=== PATIENT | female | born 1960 | race African-American/Black ===

== ENCOUNTER 2022-07-30 12:08 | Inpatient (IN) | payer MEDICARE, MEDICAID ==
[~2022-07-30] VITALS: Ht 165.1 cm; Wt 104.7 kg
[2022-07-30 14:01] LABS: Basophils # (auto) 0 10 ^3/uL (0-0.2); Eosinophils # (auto) 0 10 ^3/uL (0-0.8); Eosinophils % (auto) 0.2 % (0.0-7.0); Monocytes # (auto) 0.5 10 ^3/uL (0-1.3)
[2022-07-30 14:04] LABS: Basophils % (auto) 0.4 % (0.0-2.0); Hematocrit 37.3 % (36.0-46.0); Lymphocytes # (auto) 0.6 10 ^3/uL (0.4-5.4); Lymphocytes % (auto) 9.3 % (10.0-50.0); Mean Corpuscular Hemoglobin 32.8 pg (28.0-32.0); Mean Corpuscular Hgb Conc. 32.3 g/dL (32.0-36.0); Mean Corpuscular Volume 101.7 fL (80.0-100.0); Monocytes % (auto) 7.1 % (0.0-12.0); Neutrophils # (auto) 5.7 10 ^3/uL (1.6-8.6); Nucleated Red Blood Cells % 0.4 %; Red Blood Cells 3.67 10^6/uL (4.0-5.20); White Blood Cell 6.9 10^3/uL (4.4-10.8)
[2022-07-30 14:05] LABS: Red Cell Distribution Width 20.5 % (11.8-14.3)
[2022-07-30 14:26] LABS: Albumin 3.1 g/dL (3.4-5.0); Calcium 8.7 mg/dL (8.5-10.1); Potassium 4.9 mmol/L (3.5-5.1)
[2022-07-30 14:29] LABS: BUN/Creatinine Ratio 6.9; Bilirubin, Total 1.1 mg/dL (0.2-1.0); Total Protein 7.9 g/dL (6.4-8.2)
[2022-07-30 17:47] LABS: Magnesium 2.6 mg/dL (1.6-2.6); Phosphorus 7.2 mg/dL (2.5-4.90)
[2022-07-30] MEDS ORDERED: LORazepam 2MG/ML-1ML VIAL IV ONE (18:15)
[2022-07-30] MEDS ORDERED: HYDROcodone-ACET 10/325MG TAB PO ONE (21:15)
[2022-07-30] MEDS ORDERED: NITROGLYCERIN 0.4 MG SL TAB SL PRN (22:30)
[2022-07-30] MEDS ORDERED: MORPHINE SULFATE INJ 2 MG/ml SYRG IV PRN ×2 (22:30)
[2022-07-30] MEDS ORDERED: DOCUSATE SOD 100 MG CAP PO PRN (22:30)
[2022-07-30] MEDS ORDERED: ONDANSETRON HCL 4 MG/2 ML VIAL IV PRN (22:30)
[2022-07-30] MEDS ORDERED: DEXTROSE (50%) 50ML SYRG IV PRN (22:30)
[2022-07-30] MEDS ORDERED: HYDROcodone-ACET 5/325MG TAB PO PRN (22:30)
[2022-07-30] MEDS ORDERED: ACETAMINOPHEN 325 MG TAB PO ONE (22:45)
[2022-07-30] MEDS ORDERED: LORazepam 0.5 MG TAB PO ONE (23:15)
[2022-07-31] MEDS ORDERED: VANCOMYCIN PER PHARMACY 0 MG IV SCH (00:45)
[2022-07-31] MEDS ORDERED: VANCOMYCIN 1GM/250ML 250 ML IV ONE (00:45)
[2022-07-31 03:38] VITALS: BP 107/67
[2022-07-31 04:24] VITALS: BP 107/67
[2022-07-31] MEDS: ACETAMINOPHEN 325 MG TAB PO PRN ×3 (04:50→22:10)
[2022-07-31] MEDS: InsuLIN REG 1unit/0.01ml Soln (100units/ml) SC SCH ×4 (06:20→21:24)
[2022-07-31] MEDS: SODIUM CHLOR 0.9% PF (SALINE LOCK) 10ML VIAL/SYR IV SCH ×3 (06:20→21:38)
[2022-07-31] MEDS: ACCU-CHEK COMFORT CURVE STRIP VI SCH ×4 (06:21→21:05)
[2022-07-31 06:36] LABS: Basophils # (auto) 0.1 10 ^3/uL (0-0.2); Basophils % (auto) 0.7 % (0.0-2.0); Eosinophils # (auto) 0 10 ^3/uL (0-0.8); Eosinophils % (auto) 0.4 % (0.0-7.0); Hematocrit 36.4 % (36.0-46.0); Hemoglobin 11.8 g/dL (12.2-16.2); Lymphocytes # (auto) 0.7 10 ^3/uL (0.4-5.4); Lymphocytes % (auto) 7.6 % (10.0-50.0); Mean Corpuscular Hgb Conc. 32.6 g/dL (32.0-36.0); Mean Corpuscular Volume 101.4 fL (80.0-100.0); Monocytes # (auto) 0.6 10 ^3/uL (0-1.3); Monocytes % (auto) 7.1 % (0.0-12.0); Neutrophils # (auto) 7.4 10 ^3/uL (1.6-8.6); Neutrophils % (auto) 84.2 % (37.0-80.0); Nucleated Red Blood Cells % 0.3 %; Red Blood Cells 3.59 10^6/uL (4.0-5.20); Red Cell Distribution Width 20.2 % (11.8-14.3); White Blood Cell 8.8 10^3/uL (4.4-10.8)
[2022-07-31 07:00] LABS: Albumin 3.1 g/dL (3.4-5.0); Calcium 8.3 mg/dL (8.5-10.1)
[2022-07-31] MEDS: SEVELAMER 800 MG TAB PO SCH ×3 (08:00→18:35)
[2022-07-31 09:00] VITALS: BP 94/72
[2022-07-31] MEDS: ZINC SULFATE 220mg CAP or TAB PO SCH (10:11)
[2022-07-31] MEDS: B-COMPLEX W/ C & FOLIC ACID(NEPHROVITE TAB) PO SCH (10:11)
[2022-07-31] MEDS: ASCORBIC ACID 500 MG TAB PO SCH ×2 (10:11→21:38)
[2022-07-31] MEDS: HEPARIN SODIUM (PORCINE) 5000 UNITS/ML 1ML VIAL SC SCH ×2 (10:15→21:41)
[2022-07-31] MEDS: FAMOTIDINE (10MG/ML) 2ML VL IV SCH (10:26)
[2022-07-31 13:00] VITALS: BP 103/64
[2022-07-31] MEDS: HYDROCORTISONE ACET 25 MG RECTAL SUPP PR SCH ×2 (15:06→21:39)
[2022-07-31 17:00] VITALS: BP 88/73
[2022-07-31 22:00] VITALS: BP 91/52
[2022-08-01 05:00] VITALS: BP 97/62
[2022-08-01 05:28] LABS: Basophils # (auto) 0.1 10 ^3/uL (0-0.2); Basophils % (auto) 0.7 % (0.0-2.0); Eosinophils # (auto) 0.1 10 ^3/uL (0-0.8); Eosinophils % (auto) 0.7 % (0.0-7.0); Hemoglobin 11.5 g/dL (12.2-16.2); Lymphocytes # (auto) 0.7 10 ^3/uL (0.4-5.4); Lymphocytes % (auto) 8.6 % (10.0-50.0); Mean Corpuscular Hemoglobin 32.7 pg (28.0-32.0); Mean Corpuscular Hgb Conc. 32.9 g/dL (32.0-36.0); Mean Corpuscular Volume 99.4 fL (80.0-100.0); Monocytes # (auto) 0.5 10 ^3/uL (0-1.3); Neutrophils # (auto) 6.5 10 ^3/uL (1.6-8.6); Nucleated Red Blood Cells % 1.1 %; Red Blood Cells 3.52 10^6/uL (4.0-5.20); Red Cell Distribution Width 19.8 % (11.8-14.3); White Blood Cell 7.8 10^3/uL (4.4-10.8)
[2022-08-01] MEDS: SODIUM CHLOR 0.9% PF (SALINE LOCK) 10ML VIAL/SYR IV SCH ×3 (05:43→22:17)
[2022-08-01 05:52] LABS: Albumin 2.9 g/dL (3.4-5.0); BUN/Creatinine Ratio 7.2; Calcium 8.7 mg/dL (8.5-10.1); Phosphorus 7.6 mg/dL (2.5-4.90); Potassium 5.5 mmol/L (3.5-5.1)
[2022-08-01] MEDS: ACCU-CHEK COMFORT CURVE STRIP VI SCH ×4 (06:04→22:18)
[2022-08-01] MEDS: InsuLIN REG 1unit/0.01ml Soln (100units/ml) SC SCH ×4 (06:04→22:00)
[2022-08-01] MEDS ORDERED: SODIUM CHL 0.9% 1000 ML BAG XX ONE (07:00)
[2022-08-01] MEDS: SEVELAMER 800 MG TAB PO SCH ×3 (08:26→18:00)
[2022-08-01 08:30] VITALS: BP 102/65
[2022-08-01] MEDS: B-COMPLEX W/ C & FOLIC ACID(NEPHROVITE TAB) PO SCH (10:05)
[2022-08-01] MEDS: ZINC SULFATE 220mg CAP or TAB PO SCH (10:05)
[2022-08-01] MEDS: HYDROCORTISONE ACET 25 MG RECTAL SUPP PR SCH ×2 (10:06→22:00)
[2022-08-01] MEDS: ASCORBIC ACID 500 MG TAB PO SCH ×2 (10:06→22:18)
[2022-08-01] MEDS: HEPARIN SODIUM (PORCINE) 5000 UNITS/ML 1ML VIAL SC SCH ×2 (10:07→22:14)
[2022-08-01 13:48] VITALS: BP 104/64
[2022-08-01] MEDS: ACETAMINOPHEN 325 MG TAB PO PRN (16:48)
[2022-08-01 17:25] VITALS: BP 111/68
[2022-08-01] MEDS ORDERED: VANCOMYCIN 1GM/250ML 250 ML IV ONE (18:00)
[2022-08-01] MEDS ORDERED: ALBUMIN 25% 100 ML IV PRN (19:15)
[2022-08-01 22:00] VITALS: BP 95/55
[2022-08-01] MEDS: LORazepam 2MG/ML-1ML VIAL IV PRN (22:32)
[2022-08-02 04:24] VITALS: BP 98/61
[2022-08-02] MEDS: LORazepam 2MG/ML-1ML VIAL IV PRN (04:56)
[2022-08-02] MEDS: SODIUM CHLOR 0.9% PF (SALINE LOCK) 10ML VIAL/SYR IV SCH ×2 (05:19→14:00)
[2022-08-02] MEDS: InsuLIN REG 1unit/0.01ml Soln (100units/ml) SC SCH ×4 (06:16→22:00)
[2022-08-02] MEDS: ACCU-CHEK COMFORT CURVE STRIP VI SCH ×3 (06:16→17:00)
[2022-08-02 06:53] LABS: Potassium 4.9 mmol/L (3.5-5.1)
[2022-08-02 06:58] LABS: BUN/Creatinine Ratio 6.8; Calcium 8.9 mg/dL (8.5-10.1)
[2022-08-02 08:00] VITALS: BP 102/47
[2022-08-02] MEDS: SEVELAMER 800 MG TAB PO SCH ×3 (08:26→18:11)
[2022-08-02] MEDS: HYDROCORTISONE ACET 25 MG RECTAL SUPP PR SCH ×2 (10:00→22:00)
[2022-08-02 12:00] VITALS: BP 116/72
[2022-08-02] MEDS: ZINC SULFATE 220mg CAP or TAB PO SCH (12:26)
[2022-08-02] MEDS: B-COMPLEX W/ C & FOLIC ACID(NEPHROVITE TAB) PO SCH (12:27)
[2022-08-02] MEDS: ASCORBIC ACID 500 MG TAB PO SCH ×2 (12:27→23:47)
[2022-08-02] MEDS: CLINDAMYCIN 300MG IV 50 ML IV SCH ×2 (12:29→18:11)
[2022-08-02] MEDS: HEPARIN SODIUM (PORCINE) 5000 UNITS/ML 1ML VIAL SC SCH (12:29)
[2022-08-02] MEDS: FAMOTIDINE (10MG/ML) 2ML VL IV SCH (12:49)
[2022-08-02] MEDS ORDERED: METOPROLOL TARTRATE 1MG/1ML-5ML VIAL IV ONE (14:45)
[2022-08-02] MEDS ORDERED: AMIODARONE HCL 200 MG TAB PO ONE (14:45)
[2022-08-02 16:00] VITALS: BP 102/48
[2022-08-02 20:00] VITALS: BP 91/56
[2022-08-02 22:00] VITALS: BP 91/56
[2022-08-02] MEDS: ACETAMINOPHEN 325 MG TAB PO PRN (23:47)
[2022-08-03] MEDS: AMIODARONE HCL 200 MG TAB PO SCH ×3 (00:04→21:33)
[2022-08-03] MEDS: ACCU-CHEK COMFORT CURVE STRIP VI SCH ×5 (01:28→21:33)
[2022-08-03] MEDS: SODIUM CHLOR 0.9% PF (SALINE LOCK) 10ML VIAL/SYR IV SCH ×4 (01:29→21:54)
[2022-08-03] MEDS: HEPARIN SODIUM (PORCINE) 5000 UNITS/ML 1ML VIAL SC SCH ×3 (01:30→21:32)
[2022-08-03] MEDS: CLINDAMYCIN 300MG IV 50 ML IV SCH ×3 (02:32→18:16)
[2022-08-03 05:00] VITALS: BP 113/68
[2022-08-03] MEDS: InsuLIN REG 1unit/0.01ml Soln (100units/ml) SC SCH ×4 (07:00→21:34)
[2022-08-03] MEDS: SEVELAMER 800 MG TAB PO SCH ×3 (08:50→18:16)
[2022-08-03] MEDS: B-COMPLEX W/ C & FOLIC ACID(NEPHROVITE TAB) PO SCH (08:50)
[2022-08-03] MEDS: ASCORBIC ACID 500 MG TAB PO SCH ×2 (08:51→21:26)
[2022-08-03] MEDS: ZINC SULFATE 220mg CAP or TAB PO SCH (08:52)
[2022-08-03 09:00] VITALS: BP 95/67
[2022-08-03] MEDS: HYDROCORTISONE ACET 25 MG RECTAL SUPP PR SCH ×2 (11:39→21:33)
[2022-08-03] MEDS ORDERED: DIGOXIN (250MCG/ML) 2 ML AMPULE IV ONE (12:00)
[2022-08-03 13:00] VITALS: BP 101/59
[2022-08-03 14:44] LABS: Cholesterol 79 mg/dL (< 200); HDL Cholesterol 34 mg/dL (40-59); LDL Cholesterol 36 mg/dL (< 100); Triglycerides 86 mg/dL (< 150)
[2022-08-03] MEDS: ACETAMINOPHEN 325 MG TAB PO PRN (14:58)
[2022-08-03 17:00] VITALS: BP 97/55
[2022-08-03] MEDS: SACUBITRIL-VALSARTAN 24mg/26mg TAB PO SCH (21:33)
[2022-08-03] MEDS: CARVEDILOL 3.125 MG TAB PO SCH (21:33)
[2022-08-03 22:00] VITALS: BP 92/53
[2022-08-04] MEDS: ACETAMINOPHEN 325 MG TAB PO PRN (00:41)
[2022-08-04] MEDS: CLINDAMYCIN 300MG IV 50 ML IV SCH ×3 (01:36→17:54)
[2022-08-04 04:44] VITALS: BP 94/53
[2022-08-04] MEDS: SODIUM CHLOR 0.9% PF (SALINE LOCK) 10ML VIAL/SYR IV SCH ×2 (06:04→14:00)
[2022-08-04] MEDS: ACCU-CHEK COMFORT CURVE STRIP VI SCH ×3 (06:40→17:35)
[2022-08-04] MEDS: InsuLIN REG 1unit/0.01ml Soln (100units/ml) SC SCH ×3 (06:41→17:35)
[2022-08-04] MEDS: SEVELAMER 800 MG TAB PO SCH ×3 (08:01→17:54)
[2022-08-04 09:00] VITALS: BP 92/73
[2022-08-04] MEDS ORDERED: CAR3125T PO (09:00)
[2022-08-04] MEDS ORDERED: DIGO0.12 PO (09:00)
[2022-08-04] MEDS ORDERED: SACU1TAB PO (09:00)
[2022-08-04] MEDS ORDERED: AMIO200T33 PO (09:00)
[2022-08-04] MEDS ORDERED: CLIN300C8 PO (09:02)
[2022-08-04] MEDS ORDERED: DIGOXIN 0.125 MG TAB PO SCH (10:00)
[2022-08-04] MEDS: B-COMPLEX W/ C & FOLIC ACID(NEPHROVITE TAB) PO SCH (11:01)
[2022-08-04] MEDS: ZINC SULFATE 220mg CAP or TAB PO SCH (11:01)
[2022-08-04] MEDS: ASCORBIC ACID 500 MG TAB PO SCH (11:02)
[2022-08-04] MEDS: CARVEDILOL 3.125 MG TAB PO SCH (11:19)
[2022-08-04] MEDS: HYDROCORTISONE ACET 25 MG RECTAL SUPP PR SCH (11:19)
[2022-08-04] MEDS: HEPARIN SODIUM (PORCINE) 5000 UNITS/ML 1ML VIAL SC SCH (11:19)
[2022-08-04] MEDS: SACUBITRIL-VALSARTAN 24mg/26mg TAB PO SCH (11:19)
[2022-08-04] MEDS: AMIODARONE HCL 200 MG TAB PO SCH (11:22)
[2022-08-04] MEDS: FAMOTIDINE (10MG/ML) 2ML VL IV SCH (11:30)
[2022-08-04 13:00] VITALS: BP 95/65
== END 2022-08-04 20:00 | disposition home health service (06) | DRG 602 ==
LOC: ER 12:08 → TELE 22:30 → TELE-EAST 07-31 02:59
PROVIDERS: ADMIT Nurse Practitioner Family; ATTEND Family Medicine
PROC: 5A1D70Z Performance of Urinary Filtration, Intermittent, Less than 6 Hours Per Day (ICD-10-PCS; principal; 2022-08-01)
PROC: 5A1D70Z Performance of Urinary Filtration, Intermittent, Less than 6 Hours Per Day (ICD-10-PCS; 2022-08-03)
PROC: 05HC33Z Insertion of Infusion Device into Left Basilic Vein, Percutaneous Approach (ICD-10-PCS; 2022-08-04)
PROC: B54NZZA Ultrasonography of Left Upper Extremity Veins, Guidance (ICD-10-PCS; 2022-08-04)
DX: L03.116 Cellulitis of left lower limb (principal); I50.23 Acute on chronic systolic (congestive) heart failure; N18.6 End stage renal disease; E44.0 Moderate protein-calorie malnutrition; I31.39 Other pericardial effusion (noninflammatory); I48.92 Unspecified atrial flutter; E11.22 Type 2 diabetes mellitus with diabetic chronic kidney disease; Z20.822 Contact with and (suspected) exposure to COVID-19; D63.8 Anemia in other chronic diseases classified elsewhere; E11.51 Type 2 diabetes mellitus with diabetic peripheral angiopathy without gangrene; I48.91 Unspecified atrial fibrillation; J44.9 Chronic obstructive pulmonary disease, unspecified; A49.02 Methicillin resistant Staphylococcus aureus infection, unspecified site; E11.65 Type 2 diabetes mellitus with hyperglycemia; W57.XXXA Bitten or stung by nonvenomous insect and other nonvenomous arthropods, initial encounter; Z99.2 Dependence on renal dialysis; Z68.37 Body mass index [BMI] 37.0-37.9, adult; Z88.0 Allergy status to penicillin; Z79.4 Long term (current) use of insulin; Z89.511 Acquired absence of right leg below knee; Z91.199 Patient's noncompliance with other medical treatment and regimen due to unspecified reason; Y93.89 Activity, other specified; Y92.89 Other specified places as the place of occurrence of the external cause; Y99.8 Other external cause status
CPT/HCPCS: 36415; 71045; 80048; 80053; 80061; 80069; 80202; 82962; 83036; 83735; 83880; 84100; 84443; 85025; 85652; 86141; 87040; 87077; 87186; 87205; 87340; 87426; 87493; 90935; 93306; 93926; 96365; 96375; 97162; 97530; G0378; J1815; J3490